=== PATIENT | male | born 1955 | race Caucasian/White ===

== ENCOUNTER 2016-10-01 14:32 | Emergency (ER) | payer OTHER ==
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
[2016-10-01 19:31] VITALS: BP 169/103
--- NOTE | 2016-10-01 20:57 | Diag Imaging Result Document ---
PROCEDURE NAME: THORACIC SPINE W/O CONTRAST - 10/01/2016 STUDY: CT thoracic spine without contrast. There is mild scoliosis. No compressed vertebra. No other fracture. No pleural effusions or pneumothoraces. IMPRESSION: No acute bony injury. A preliminary report was given at 7:34 p.m.
--- NOTE | 2016-10-01 21:05 | Diag Imaging Result Document ---
PROCEDURE NAME: CERVICAL SPINE W/O CONTRAST - 10/01/2016 CT BRAIN WITHOUT CONTRAST FINDINGS: There is reversal of the normal curvature. Moderate to prominent degenerative changes in the lower cervical spine with multilevel spinal stenosis. No subluxation. No fracture. 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 IMPRESSION: 1. No acute fracture. 2. Degenerative spine changes with multilevel spinal stenosis due to bulging discs and posterior bone spurs.
== END 2016-10-01 19:30 | disposition home or self-care (01) ==
LOC: P.ED 14:32
DX: M54.2 Cervicalgia (principal); M79.1 Myalgia; M25.512 Pain in left shoulder; M25.511 Pain in right shoulder; M47.9 Spondylosis, unspecified; Z79.899 Other long term (current) drug therapy; V53.5XXA Driver of pick-up truck or van injured in collision with car, pick-up truck or van in traffic accident, initial encounter
CPT/HCPCS: 72125; 72128